=== PATIENT | male | born 1955 | race Caucasian/White ===

== ENCOUNTER 2025-10-31 15:52 | Emergency (ER) | payer MEDICAID ==
[~2025-10-31] VITALS: Ht 175.3 cm; Wt 81.6 kg
--- NOTE | 2025-10-31 16:06 | Physician Documentation ---
HPI ~ General Chief Complaint: Amputation Stated Complaint: L FINGER LAC Time Seen by MD: 16:14 History of Present Illness Initial Comments This is a 69-year-old male who presents with lacerations to posterior left 2nd and 3rd fingers with deep laceration to 2nd finger, patient reports he is unable to move the 2nd finger. Patient reports last Tdap unknown. Laceration caused b y a power saw while cutting wood. Patient states that it he was using a table saw to cut some wood when the saw slipped and he cut his finger. He had immediate pain and bleeding. States that he can not extend his index finger. Medication Reconciliation Allergies: Coded Allergies: No Known Allergies (Unverified , 10/31/25) Scheduled Amox Tr/Potassium Clavulanate (Augmentin 875-125 Tablet), 1 TAB PO Q12H Ibuprofen (Ibuprofen), 1 TAB PO Q8H Scheduled PRN Hydrocodone Bit/Acetaminophen (Hydrocodon-Acetaminophn 10-325 tablet), 1 TAB PO QID PRN PRN for pain Review of Systems ROS As stated above in the HPI, otherwise all systems are reviewed and negative. Physical Exam Vital Signs: Temperature: 97.8, Source: Temporal, Heart Rate: 51, Respiratory Rate: 18, BP: 196/77, Pulse Oximetry: 99, Weight: 81.600 Oxygen Flow Rate: 0 Physical Exam I have reviewed the triage vitals. CONST: Well developed and well nourished. In no acute distress HENT: Head Atraumatic EYES: Pupils are equal, round and reactive to light. Normal conjunctiva NECK: Normal range of motion. Supple. CARDIO: Normal rate and regular rhythm. No murmurs, rubs, or gallops. S1, S2. PULM/CHEST: No respiratory distress. Lungs clear to auscultation. No wheeze ABD: Soft and nontender. Nondistended. Bowel sounds normal. No guarding. : Exam deferred MSK: Left hand-open fracture present over the dorsal aspect of the 2nd digit with exposed bone at the PIP joint. Inability to extend digit. Laceration present over the middle phalanx of the 3rd digit. NEURO: Alert and oriented to person, place and time. Moving all extremities SKIN: Warm and dry. PSYCH: Normal mood and affect. Good eye contact. Procedures Laceration/Wound Repair Laceration/Wound Repair : Location: left hand 2nd and 3rd digits Anesthesia: Lidocaine w/ Epi Volume Anesthetic (mls): 6 Prep: betadine Irrigated w/ Saline (mls): 50 Debrided: minimal Undermining: none Margins: flaps aligned Foreign Body: not identified Repaired: skin Wound Repaired With: sutures Suture Size/Type: 4-0, ethilon, prolene Number of Superficial Sutures: 9 Dressing Applied: non-adherent Splint Applied?: Yes Type of Splint Applied: finger splint in extension Sling Applied?: No Tolerated Procedure Well?: yes, no complications Procedure Note Patient had two separate procedures-one laceration repair on the 2nd digit and a 2nd one on the 3rd digit. Five single interrupted sutures applied to the 2nd digit. Four single interrupted sutures applied to the 3rd digit. The 2nd digit also had a underlying tendon laceration as well as a fracture of the middle phalanx. The extremity was splinted with a finger splint in extension position. Progress Results/Orders Results/Orders Orders - TENNILLE GEORGE MD Finger(S) (10/31/25 16:32) Cbc/Diff (10/31/25 17:02) BMP (10/31/25 17:02) Ct Upper Extremities (10/31/25 17:10) Lidocaine 1% 30ml Vial (Xylocaine 1% Via (10/31/25 17:16) Completed Orders - TENNILLE GEORGE MD Finger(S) (10/31/25 16:32) Ct Upper Extremities (10/31/25 17:10) Cefazolin 1gm/D5w- Add-[place] (Ancef 1 (10/31/25 17:10) Lidocaine 1% W/Epi 1:100,000 (Xylocaine (10/31/25 17:20) Hydrocodone/Apap 5/325mg Tab ([place] 5/32 (10/31/25 17:20) Normal Saline 1000ml (0.9% Sodium Chlori (10/31/25 17:35) Electrocardiogram (10/31/25 18:55) Medications Received in ER Medications (Trade) Dose Ordered Sig/[place] Route PRN Reason Start Time Stop Time Status Last Admin Dose Admin (Boostrix vaccine syringe) 0.5 ml ONCE ONCE IMVAC 10/31/25 16:05 10/31/25 16:06 DC 10/31/25 17:15 0.5 ML Cefazolin Sodium/ Dextrose 50 ml @ 100 mls/hr ONCE ONCE IV 10/31/25 17:10 10/31/25 17:39 DC 10/31/25 17:15 100 MLS/HR (Xylocaine 1% vial) 10 ml ONCE STAT SQ 10/31/25 17:16 10/31/25 17:17 DC 10/31/25 17:37 10 ML ([place] 5/325mg tablet) 2 tab ONCE ONCE PO 10/31/25 17:20 10/31/25 17:21 DC 10/31/25 17:29 2 TAB Sodium Chloride 1,000 ml @ 1,000 mls/hr ONCE ONCE IV 10/31/25 17:35 10/31/25 18:34 DC 10/31/25 17:37 1,000 MLS/HR Vital Signs 10/31/25 10/31/25 10/31/25 10/31/25 15:57 16:22 17:29 17:56 Temp 97.8 Pulse 51 48 Resp 18 18 18 14 B/P (MAP) 196/77 202/84 (123) Pulse Ox 99 96 O2 Flow Rate 0 EKG/XRAY/CT/US/VASC/MRI EKG : Additional Comment EKG as interpreted by me indicating sinus bradycardia with a rate of 44 beats per minute, no ischemia, normal axis CT : Impression EXAM: CT CT UPPER EXTREMITIES INDICATION: open fracture of left 2nd digit TECHNIQUE: Axial images of right hand have been obtained along with coronal and sagittal reformatted images. All CT scans at this facility use dose modulation, iterative reconstruction, and/or weight based dosing when appropriate to reduce radiation dose to as low as reasonably achievable. COMPARISON: DI FINGER(S) on DOS: 10/31/25 FINDINGS: BONES: Significant fracture of the dorsal base with intra-articular extension of the 2nd middle phalangeal base and fracture involving the 2nd proximal phalangeal head with a proximally retracted avulsed fragment of the dorsal aspect (series 602, image 13). Areas of osseous erosions versus cysts along the proximal and distal carpal rows. MUSCLES: Associated surrounding soft tissue laceration with significant open fracture JOINT SPACES: Severe joint space loss of the triscaphe joint with opposing areas of subchondral cystic change. OTHER: None. IMPRESSION: 1. Significant fracture of the dorsal base with intra-articular extension of the 2nd middle phalangeal base and fracture involving the 2nd proximal phalangeal head with a proximally retracted avulsed fragment of the dorsal aspect. 2. Areas of osseous erosions versus cysts along the proximal and distal carpal rows. Medical Decision Making Additional Comment 69-year-old male presenting with an open fracture of his left hand 2nd middle phalanx. This was seen both on x-ray and confirmed with CT. Patient also has a full laceration of the extensor tendon. The wound was explored, irrigated and repaired-please see procedure note. Patient additionally had a laceration on the 3rd digit as well which was repaired. I did consult Dr. Delong of Orthopedics. He recommended exactly as we did to irrigate the wound very well, perform laceration repair and splint the digit in extension. This was done and patient was advised to call For his clinic tomorrow to schedule an appointment within the next 2-3 days. He will likely need operative repair of the fracture and 10 to laceration. Patient was given a tetanus immunization in the ED. He was also given 2 g of IV Ancef for infectious prophylaxis. He will be discharged with a seven day course of Augmentin. Additionally I did prescribe him ibuprofen 600 mg, 30 tablets as well as [place] 10-325 mg, 20 tablets for pain control. Advised to follow up very closely with Orthopedics and to return to the ED with any acutely worsening symptoms. Departure Disposition: 01 HOME / SELF CARE / HOMELESS Impression: Primary Impression: Open fracture of phalanx of left index finger Additional Impressions: Laceration of finger of left hand with tendon involvement Laceration of finger of left hand Discharge Instructions: Finger Fracture, Adult, Laceration Care, Adult Additional Instructions: Please follow up with Dr. Delong of orthopedics. Please call his office tomorrow at five [phone] schedule an appointment. You will likely need surgery for your left index finger. Please take the medication that was prescribed to. You were prescribed an antibiotic called Augmentin, please start this immediately. Additionally I did prescribe you [place] as well as ibuprofen for pain. You may initially used ibuprofen as needed and then if you have breakthrough pain can take the [place]. It is extremely important that you follow up closely with Orthopedics. Please return to the emergency department immediately should you experience any worsening pain, bleeding from the wound, increasing pain and swelling. Referrals: NO PRIMARY CARE PROVIDER (PCP) BHARTI DELONG Jr., MD Prescriptions Ibuprofen (Ibuprofen) 600 Mg Tablet 1 TAB PO Q8H for pain for 10 Days, #30 TAB 0 Refills with food Prov: TENNILLE GEORGE MD 10/31/25 Hydrocodone Bit/Acetaminophen (Hydrocodon-Acetaminophn 10-325 tablet) 10mg- 325mg Tablet 1 TAB PO QID PRN PRN for pain for 5 Days, #20 TAB Prov: TENNILLE GEORGE MD 10/31/25 Amox Tr/Potassium Clavulanate (Augmentin 875-125 Tablet) 1 Each Tablet 1 TAB PO Q12H for 7 Days, #14 TAB Prov: TENNILLE GEORGE MD 10/31/25 MARGARET COLE Oct 31, 2025 16:06 TENNILLE GEORGE MD Oct 31, 2025 17:00
[2025-10-31] MEDS ORDERED: ceFAZolin/D5W- 1GM premix 50 ML IV ONE (16:55)
[2025-10-31] MEDS ORDERED: tetanus & diphtheria toxoid (Td) vaccine 0.5ml SYRINGE IMVAC ONE (17:00)
--- NOTE | 2025-10-31 17:05 | RADIOLOGY REPORT ---
CLINICAL INDICATION: LACERATION TO INDEX FINGER L HAND TECHNIQUE: DI FINGER(S) COMPARISON: None FINDINGS/IMPRESSION: : There is no evidence of acute fracture or dislocation. Diffuse subcutaneous soft-tissue edema and swelling. No appreciable radiopaque foreign body. Overlying bandages obscures bony and soft-tissue detail.
[2025-10-31] MEDS: TETanus/Pertussis (Acell)/Diphther VAC/PF (Tdap-Adult) 0.5ml syringe IMVAC ONE (17:15)
[2025-10-31] MEDS: ceFAZolin 1GM/D5W- ADD-VANTAGE 50 ML IV ONE (17:15)
[2025-10-31] MEDS: HYDROcodone/acetaminophen 5mg/325mg tablet PO ONE (17:29)
[2025-10-31] MEDS: normal saline 1000ml 1,000 ML IV ONE (17:37)
[2025-10-31] MEDS: LIDOcaine 1% 30ml preserv. free vial SQ STA (17:37)
[2025-10-31] MEDS: LIDOcaine 1% W/epiNEPHrine 1:100,000 20ml vial SQ ONE (17:38)
--- NOTE | 2025-10-31 18:10 | RADIOLOGY REPORT ---
EXAM: CT CT UPPER EXTREMITIES INDICATION: open fracture of left 2nd digit TECHNIQUE: Axial images of right hand have been obtained along with coronal and sagittal reformatted images. All CT scans at this facility use dose modulation, iterative reconstruction, and/or weight based dosing when appropriate to reduce radiation dose to as low as reasonably achievable. COMPARISON: DI FINGER(S) on DOS: 10/31/25 FINDINGS: BONES: Significant fracture of the dorsal base with intra-articular extension of the 2nd middle phalangeal base and fracture involving the 2nd proximal phalangeal head with a proximally retracted avulsed fragment of the dorsal aspect (series 602, image 13). Areas of osseous erosions versus cysts along the proximal and distal carpal rows. MUSCLES: Associated surrounding soft tissue laceration with significant open fracture JOINT SPACES: Severe joint space loss of the triscaphe joint with opposing areas of subchondral cystic change. OTHER: None. IMPRESSION: 1. Significant fracture of the dorsal base with intra-articular extension of the 2nd middle phalangeal base and fracture involving the 2nd proximal phalangeal head with a proximally retracted avulsed fragment of the dorsal aspect. 2. Areas of osseous erosions versus cysts along the proximal and distal carpal rows.
[2025-10-31] MEDS ORDERED: IBUP600T52 PO (18:45)
[2025-10-31] MEDS ORDERED: AMOX-117 PO (18:45)
[2025-10-31] MEDS ORDERED: HYDR-3972 PO (18:45)
--- NOTE | 2025-10-31 18:59 | ELECTROCARDIOGRAPH REPORT ---
[facility] Test Date: 2025-10-31 Test Time: 18:55:48 Pat Name: LIBERTAD ROBERTS Department: [facility]- Patient ID: [facility]-[id number] Room: Gender: M [employer]ili[employer] Marketing Manager: : 1955 Requested By: TENNILLE GEORGE Order Number: [id number] Reading MD: Measurements Intervals [place] Rate: 44 P: 1 NV: 192 QRS: 4 QRSD: 92 T: 51 QT: 456 QTc: 390 Interpretive Statements Sinus bradycardia Please click the below link to view image of tracing.
[2025-10-31 19:10] VITALS: TEMP 98.2
[2025-10-31 19:12] LABS: MEAN PLATELET VOLUME 9.5 FL (7.4-10.4); RED CELL DISTRIBUTION WIDTH 13.3 % (11.5-14.5)
[2025-10-31 19:29] VITALS: BP 185/82; PULSE 46; RESP 16; O2SAT 98
[2025-10-31 19:57] LABS: CREATININE 0.96 MG/DL (0.60-1.10); TOTAL CARBON DIOXIDE 24.8 MMOL/L (24-32); eCRCL 75 ML/MIN; eGFR 78 ML/MIN
== END 2025-10-31 19:32 | disposition home or self-care (01) ==
LOC: ER 15:54
DX: S62.621A Displaced fracture of middle phalanx of left index finger, initial encounter for closed fracture (principal); S61.211A Laceration without foreign body of left index finger without damage to nail, initial encounter; S61.213A Laceration without foreign body of left middle finger without damage to nail, initial encounter; Z79.899 Other long term (current) drug therapy; W26.8XXA Contact with other sharp object(s), not elsewhere classified, initial encounter; Y93.89 Activity, other specified; Y92.89 Other specified places as the place of occurrence of the external cause; Y99.8 Other external cause status
CPT/HCPCS: 29130; 36415; 73140; 73200; 80048; 85025; 90471; 90715; 93005; 96365; 96366; 99285; J0690; J2003; J7030; A6258; A6449